=== PATIENT | female | born 1965 | race Caucasian/White ===

== ENCOUNTER 2021-02-07 14:41 | Emergency (ER) | payer OTHER, SELFPAY ==
[2021-02-07 14:42] VITALS: BP 111/66; PULSE 69; RESP 12; TEMP 36.4; O2SAT 100; BMI 25.2
--- NOTE | 2021-02-07 15:44 | RAD_ITS ---
STUDY: X-RAY CHEST REASON FOR EXAM: Female, 55 years old. Syncope. Weakness. TECHNIQUE: Single AP portable view of the chest. COMPARISON: None. FINDINGS: The lungs are clear and expanded. There is no demonstrated pleural abnormality. Normal size heart. Normal mediastinum and ry. Normal visualized pulmonary arteries. Normal visualized aortic arch and descending thoracic aorta. Normal visualized thoracic spine. Normal visualized ribs, clavicles, and shoulders. There is no demonstrated abnormality of the visualized soft tissue structures of the upper abdomen. RAD/Chest 1 View (Portable) IMPRESSION: No acute cardiopulmonary disease. Electronically Signed: Higinio Pratt DO at 16:47 EDT Tel [phone], Service support ,
--- NOTE | 2021-02-07 15:44 | EKG12_ITS ---
Test Reason : SYNCOPE Blood Pressure : / mmHG Vent. Rate : 080 BPM Atrial Rate : 080 BPM P-R Int : 176 ms QRS Dur : 088 ms QT Int : 384 ms P-R-T Axes : 071 065 072 degrees QTc Int : 442 ms Normal sinus rhythm Normal ECG Confirmed by BELL BARNEY, DREAD ([id number]), editor in chief RAFA SANON ([id number]) on 02/11/2021 11:01:26 AM Referred By: FELIX Confirmed By:DREAD LUU MD
--- NOTE | 2021-02-07 15:44 | CT_ITS ---
STUDY: CT BRAIN WITHOUT CONTRAST REASON FOR EXAM: Female, 55 years old. Tremor. Syncope. RADIATION DOSAGE (If Supplied By Facility): CTDIvol = ( 44.99 ) mGy, DLP = ( 796.11 ) mGycm TECHNIQUE: Transaxial CT imaging of the brain was performed without administration of intravenous contrast material. Individualized dose optimization techniques were used for this CT. COMPARISON: No relevant priors. FINDINGS: Normal soft tissue structures. Normal calvarium. Normal size ventricles and extra-axial spaces for the patient''s age. Normal white matter tracts of the cerebral hemispheres. Normal basal ganglia and thalami. Normal brainstem. Normal cerebellum. There is no intracranial hemorrhage. There are no findings of an acute ischemic infarction. Normal visualized paranasal sinuses. CT/Brain/Head without Contrast IMPRESSION: Normal unenhanced CT scan of the brain. Electronically Signed: Higinio Pratt DO at 16:38 EDT Tel [phone], Service support ,
--- NOTE | 2021-02-07 15:56 | ED.RN ---
NO OLD EKGS
[2021-02-07 16:08] VITALS: BP 105/57; PULSE 78; RESP 18; O2SAT 99
[2021-02-07 16:10] VITALS: BP 106/60; BP 108/70; BP 112/60; PULSE 80; PULSE 82; PULSE 88
[2021-02-07 16:11] LABS: Absolute Lymphocyte Count 1.32 X10^3/uL (0.83-4.51); Absolute Neutrophil Count 4.1 X10^3/uL (2.0-7.7); Basophil# 0.03 X10^3/uL; Basophil% 0.5 % (0-1); Eosinophil# 0.04 X10^3/uL; Eosinophils% 0.7 % (0-5); Hematocrit 42.7 % (37-47); Lymphocyte # 1.32 X10^3/ul (0.83-4.51); Lymphocyte % 22.5 % (19-41); Mean Corp Hgb Conc 32.8 g/dL (32-36); Mean Corpuscular Hgb 30.3 pg (27.0-32.0); Mean Corpuscular Volume 92.4 fL (81-99); Mean Platelet Vol. 12.2 fl (6.2-12.0); Monocyte# 0.39 X10^3/uL; Monocyte% 6.6 % (0-10); NRBC Flagged by Analyzer 0 % (0-5); Neutrophil # 4.07 X10^3/uL (2.7-7.7); Neutrophil % 69.4 % (47-70); Platelet Count 253 K/mm3 (150-450); RBC Distribution Width CV 12.5 % (11.6-14.6); RBC Distribution Width SD 42.8 fl (35.1-43.9); Red Blood Count 4.62 M/mm3 (4.2-5.4); White Blood Count 5.9 K/mm3 (4.4-11.0)
[2021-02-07 16:32] LABS: AST(SGOT) 11 U/L (15-37); Alanine Aminotransfer ALT/SGPT 20 U/L (13-56); Albumin, Serum 4.1 g/dL (3.2-5.0); Alkaline Phosphatase 68 U/L (45-117); Anion Gap 8 (5-15); BUN 10 mg/dL (7-18); BUN/Creat Ratio 11.7 RATIO (10-20); Bilirubin, Direct 0.14 mg/dL (0.00-0.30); Calcium,Total 9.3 mg/dL (8.5-10.1); Chloride 104 mmol/L (98-107); Creatinine, Serum 0.85 mg/dL (0.55-1.02); EST Glomerular Filtration Rate 73 mL/min (>60); Est Glom Filt Rate - Afr Amer 89 mL/min (>60); Estimated Creatinine Clearance 58.45 ml/min; Globulin 3.2 g/dL (2.2-4.2); Glucose 117 mg/dL (74-106); Lipase 108 U/L (73-393); Potassium 4.2 mmol/L (3.5-5.1); Protein, Total 7.3 g/dL (6.4-8.2); Sodium Level 138 mmol/L (136-145)
[2021-02-07 16:33] LABS: Internal QC Validated? YES +Cl - CLEAR BKGD
[2021-02-07 16:35] LABS: Monotest Negative (Negative)
[2021-02-07 16:35] LABS: D-Dimer Quantitative (DVT/PE) 0.28 FEU/ug/m (0.27-0.49)
[2021-02-07 16:36] LABS: BNP,B-Type NATRIURETIC PEPTIDE 5.3 pg/mL (0-100)
[2021-02-07 17:15] VITALS: BP 118/68; PULSE 85; RESP 18; O2SAT 99
[2021-02-07 17:23] LABS: Bacteria 0 SEEN /hpf (None Seen); Mucous, Urine 0 SEEN /hpf (<or=2+); Red Blood Cells-Urine 0 SEEN /hpf (0-5); White Blood Cells 0 SEEN /hpf (0-5)
[2021-02-07 17:56] LABS: Color, Urine Yellow (Yellow); Glucose, Dipstick Normal (Normal); Ketone-Dipstick 15 mg/dl (Negative); Leukocyte Esterase-Dipstick Negative /ul (Negative); Nitrite-Dipstick Negative (Negative); Occult Blood-Urine Negative /ul (Negative); Protein-Dipstick Negative (Negative); Urine Bilirubin Dipstick Negative (Negative); Urine Clarity Clear (Clear); Urine Urobilinogen Normal (Normal)
[2021-02-07 18:36] LABS: Squamous Epithelial Cells - UA 0-5 SEEN /hpf (5-10)
--- NOTE | 2021-02-07 18:53 | EDS_ITS ---
HPI History of Present Illness Chief Complaint: Syncope Informant: patient and spouse/S.O. Narrative Narrative: Patient is a 55-year-old female with history of GERD presenting after syncopal episode. Patient had an outpatient visit with GI, Dr. Hernandez, when she had a syncopal episode in the [facility]. She not been seen by GI yet. Per report, patient was hypotensive at the time and sweaty. EMS was called to transfer to the emergency room. Patient previously been getting all of her care to the system in [place]. Patient was hospitalized about a month ago for SVT and ultimately transferred to [facility] where she was placed on 30-day Holter monitor. She states she has been doing with overwhelming fatigue and weakness. It is generalized weakness. She states 2 days after her first hospitalization she started having severe right lower quadrant abdominal pain. She notes she has had right lower quadrant pain for years however it flared it was significantly worse. Patient went back to [facility] where she was worked up with CT, HIDA scan and everything was found to be normal. Patient still feels very weak. She notes she continues to have abdominal bloating and decreased appetite. She has had extensive medical work-ups including an echocardiogram and evaluation with multiple specialist. Family is hoping for more answers about why this is all been going on. Patient last had a syncopal episode back in July, 6 months ago. It is unusual for her to pass out but has not happened recently. No other complaints at this time. Prior similar symptoms: Yes PFSH PFSH Home Medications cyanocobalamin (vitamin B-12) 100 mcg PO DAILY 02/07/21 [History Last Taken 02/07/21] famotidine [Pepcid AC Maximum Strength] 20 mg PO DAILY 02/07/21 [History Last Taken 02/07/21] folic acid 1 mg PO DAILY 02/07/21 [History Last Taken 02/07/21] Allergy/AdvReac Type Severity Reaction Status Date / Time No Known Allergies Allergy Verified 02/07/21 14:47 Social History Smoking Status: Never smoker ROS ROS ED Constitutional Constitutional ED: Reports chills; Denies fever(s), malaise or sweats Eyes Eyes: Denies blurry vision, diplopia or loss of vision ENT ENT ED: Denies rhinorrhea or sore throat Cardiovascular Cardiovascular: Reports other Details: Syncope ; Denies chest pain, dizziness or palpitations Respiratory/Chest Respiratory/Chest: Denies cough or dyspnea Gastrointestinal Gastrointestinal: Reports nausea; Denies vomiting Genitourinary Genitourinary ED: Denies dysuria or hematuria Musculoskeletal Musculoskeletal: Denies arthralgias or myalgias Integumentary Reports rash; Denies wounds Neurologic Neurologic: Reports weakness; Denies focal weakness, headache(s) or paresthesias Psychiatric Psychiatric: Denies anxiety, behavioral changes or depression EXAM Physical Exam Const Vital Signs: 02/07/21 14:42 02/07/21 14:49 02/07/21 16:08 Temperature 97.5 F L Temperature Source Oral Pulse Rate 69 78 Pulse Rate [Lying] Pulse Rate [Sitting] Pulse Rate [Standing] Respiratory Rate 12 18 Respiratory Effort Normal Non-Labored Blood Pressure 111/66 105/57 L Blood Pressure [Lying] Blood Pressure [Sitting] Blood Pressure [Standing] Blood Pressure Mean 81 73 Blood Pressure Mean [Lying] Blood Pressure Mean [Sitting] Blood Pressure Mean [Standing] Pulse Ox 100 99 Oxygen Delivery Method Room Air Room Air 02/07/21 16:10 02/07/21 17:15 Temperature Temperature Source Pulse Rate 85 Pulse Rate [Lying] 82 Pulse Rate [Sitting] 80 Pulse Rate [Standing] 88 Respiratory Rate 18 Respiratory Effort Blood Pressure 118/68 Blood Pressure [Lying] 106/60 Blood Pressure [Sitting] 112/60 Blood Pressure [Standing] 108/70 Blood Pressure Mean 84 Blood Pressure Mean [Lying] 75 Blood Pressure Mean [Sitting] 77 Blood Pressure Mean [Standing] 82 Pulse Ox 99 Oxygen Delivery Method Room Air Positive well nourished, well developed and no apparent distress General Appearance ED: well developed HEENT Reports normocephalic, TM's clear and moist mucous membranes atraumatic; Negative for tenderness Nose: no nasal discharge General Ear: hearing grossly impaired External Ear: external ears normal Tympanic Membrane ED: Yes TM's clear Mouth ED: Yes moist mucous membranes abnormal Mouth: moist mucous membranes abnormal Eyes PERRL and EOMs intact bilaterally General Eye ED: Negative for pale conjunctiva Neck full ROM, supple, no meningeal signs and No no JVD General: Negative for tenderness Chest Wall inspection of chest normal Resp normal respiratory effort, normal air movement and clear to auscultation bilaterally Cardio regular rate and regular rhythm GI normal to inspection, nondistended, normoactive bowel sounds Extremity normal to inspection and full ROM Neuro oriented x3, no focal motor deficits and no sensory deficits noted Neuro Narrative: Normal [id number], no nystagmus on exam Sensorium / Orientation: alert Motor Exam: strength 5/5 throughout Psych mental status grossly normal and thought process normal Mood & Affect: tearful Skin no wounds Trauma: Negative for abrasion MDM MDM MDM Narrative Medical decision making narrative: Patient evaluated after syncopal episode. Patient does have a history of syncope and appears to have been a vasovagal episode. In the ER patient states that she has overwhelming fatigue and weakness has been going on for weeks. She does not know why she has been feeling this way. She has had multiple GI cardiac evaluation as well as admissions to hospitals with no clear cause. Her orthostatics are negative. Troponins negative. D-dimer is negative. She does not have a significant electrolyte abnormalities or signs of infection. The exact cause of her sym ptoms is not clear. I do think this is more chronic and I do not think she requires further inpatient evaluation of this. Patient will follow up with her PCP. She does have close outpatient follow-up ordered. I did discuss with the patient possibility of adrenal insufficiency, myasthenia gravis or MS that could be causes of her weakness. She will follow up with her PCP for this. She also follow-up with GI she has been having issues with early state tidy, nausea and abdominal discomfort. Patient is counseled on signs and symptoms requiring return to the emergency room. Patient verbalizes agreement and understand this plan. Patient discharged home in stable and improved condition. Lab Data Attestation: I reviewed the patient's lab results. Labs: Laboratory Results - last 24 hr 02/07/21 02/07/21 02/07/21 14:10 14:10 14:10 WBC 5.9 RBC 4.62 Hgb 14.0 Hct 42.7 MCV 92.4 MCH 30.3 MCHC 32.8 RDW Std Deviation 42.8 RDW Coeff of Herlinda 12.5 Plt Count 253 MPV 12.2 H Immature Gran % (Auto) 0.300 Neut % (Auto) 69.4 Lymph % (Auto) 22.5 Alcorn % (Auto) 6.6 Eos % (Auto) 0.7 Baso % (Auto) 0.5 Absolute Neuts (auto) 4.1 Absolute Lymphs (auto) 1.32 Nucleated RBC % 0 D-Dimer Quant (PE/DVT) 0.28 Sodium 138 Potassium 4.2 Chloride 104 Carbon Dioxide 26.0 Anion Gap 8 BUN 10 Creatinine 0.85 Estim Creat Clear Calc 58.45 Est GFR (MDRD) Af Amer 89 Est GFR (MDRD) Non-Af 73 BUN/Creatinine Ratio 11.7 Glucose 117 H Lactic Acid Calcium 9.3 Total Bilirubin 0.50 Direct Bilirubin 0.14 AST 11 L ALT 20 Alkaline Phosphatase 68 Troponin I < 0.015 B-Natriuretic Peptide Total Protein 7.3 Albumin 4.1 Globulin 3.2 Lipase 108 Urine Color Urine Clarity Urine pH Ur Specific [place] Urine Protein Urine Glucose (UA) Urine Ketones Urine Occult Blood Urine Nitrite Urine Bilirubin Urine Urobilinogen Ur Leukocyte Esterase Urine RBC Urine WBC Ur Squamous Epith Cells Urine Bacteria Urine Mucus Monoscreen 02/07/21 02/07/21 02/07/21 14:10 16:05 16:05 WBC RBC Hgb Hct MCV MCH MCHC RDW Std Deviation RDW Coeff of Herlinda Plt Count MPV Immature Gran % (Auto) Neut % (Auto) Lymph % (Auto) Alcorn % (Auto) Eos % (Auto) Baso % (Auto) Absolute Neuts (auto) Absolute Lymphs (auto) Nucleated RBC % D-Dimer Quant (PE/DVT) Sodium Potassium Chloride Carbon Dioxide Anion Gap BUN Creatinine Estim Creat Clear Calc Est GFR (MDRD) Af Amer Est GFR (MDRD) Non-Af BUN/Creatinine Ratio Glucose Lactic Acid 1.0 Calcium Total Bilirubin Direct Bilirubin AST ALT Alkaline Phosphatase Troponin I B-Natriuretic Peptide 5.3 Total Protein Albumin Globulin Lipase Urine Color Urine Clarity Urine pH Ur Specific [place] Urine Protein Urine Glucose (UA) Urine Ketones Urine Occult Blood Urine Nitrite Urine Bilirubin Urine Urobilinogen Ur Leukocyte Esterase Urine RBC Urine WBC Ur Squamous Epith Cells Urine Bacteria Urine Mucus Monoscreen Negative 02/07/21 17:13 WBC RBC Hgb Hct MCV MCH MCHC RDW Std Deviation RDW Coeff of Herlinda Plt Count MPV Immature Gran % (Auto) Neut % (Auto) Lymph % (Auto) Alcorn % (Auto) Eos % (Auto) Baso % (Auto) Absolute Neuts (auto) Absolute Lymphs (auto) Nucleated RBC % D-Dimer Quant (PE/DVT) Sodium Potassium Chloride Carbon Dioxide Anion Gap BUN Creatinine Estim Creat Clear Calc Est GFR (MDRD) Af Amer Est GFR (MDRD) Non-Af BUN/Creatinine Ratio Glucose Lactic Acid Calcium Total Bilirubin Direct Bilirubin AST ALT Alkaline Phosphatase Troponin I B-Natriuretic Peptide Total Protein Albumin Globulin Lipase Urine Color Yellow Urine Clarity Clear Urine pH 7.0 Ur Specific [place] 1.010 Urine Protein Negative Urine Glucose (UA) Normal Urine Ketones 15 H Urine Occult Blood Negative Urine Nitrite Negative Urine Bilirubin Negative Urine Urobilinogen Normal Ur Leukocyte Esterase Negative Urine RBC 0 SEEN Urine WBC 0 SEEN Ur Squamous Epith Cells 0-5 SEEN Urine Bacteria 0 SEEN Urine Mucus 0 SEEN Monoscreen Radiography Chest X-Ray - ED: 1 View, Read by ED Physician, Read by Radiologist and No Acute Disease Diagnostic Testing: Radiology Impression Brain CT 02/07/21 15:44 IMPRESSION: Normal unenhanced CT scan of the brain. Electronically Signed: Higinio Pratt DO at 16:38 EDT Tel [phone], Service support , Chest X-Ray 02/07/21 15:44 IMPRESSION: No acute cardiopulmonary disease. Electronically Signed: Higinio Pratt DO at 16:47 EDT Tel [phone], Service support , Rhythm Strip Rhythm Strip: Sinus Rhythm Rate: 80 Ectopy: None EKG Initial EKG: Attestation: I personally reviewed and interpreted this EKG as follows: Interpretation: Sinus Rhythm Comments: Normal sinus rhythm rate of 80 Normal axis Normal intervals Normal ST segments Prior: No Prior Treatment and Re-Evaluation Comments:: IV fluids, largely negative work-up and discharged home. No syncope or presyncope on orthostatics. Discharge Plan Triage Chief Complaint: Syncope ED Provider: Bre Malagon Dx/Rx/DC Orders Clinical Impression: Syncope and collapse, Generalized weakness Instructions: ED Weakness (Uncertain Cause), ED Dizziness Syncope Fainting W Pre Prescriptions: No Action famotidine [Pepcid AC Maximum Strength] 20 mg Tablet 20 mg PO DAILY RF: 0 cyanocobalamin (vitamin B-12) 100 mcg Tablet 100 mcg PO DAILY RF: 0 folic acid 1 mg Tablet 1 mg PO DAILY RF: 0 Primary Care Provider: Catina Moore Referrals: Oberhauser,Catina, DO [Primary Care Provider] - Activity Restrictions/Additional Instructions: Your work-up today was largely normal. No obvious cause of your symptoms was fo und. I think you are safe to go home. Please follow-up with your primary care doctor to inquire about further testing for adrenal insufficiency, myasthenia gravis and or multiple sclerosis. Please also follow-up with GI as previously scheduled. Disposition Disposition: Home, self care
[2021-02-07 19:11] VITALS: BP 107/49; PULSE 75; RESP 18; O2SAT 94
== END 2021-02-07 19:12 | disposition home or self-care (01) ==
PROVIDERS: Emergency Provider Emergency Medicine; PCP Internal Medicine
DX: R55 Syncope and collapse (principal); R53.1 Weakness; R14.0 Abdominal distension (gaseous)
CPT/HCPCS: 70450; 71045; 80048; 80076; 81001; 83605; 83690; 83880; 84484; 85025; 85379; 86308; 93005; 99285; J7030; A4216